=== PATIENT | male | born 1990 | race Caucasian/White ===

== ENCOUNTER 2024-04-15 12:34 | Emergency (ER) | payer MEDICAID, SELFPAY ==
[2024-04-15 12:41] VITALS: BP 166/110; PULSE 95; RESP 18; TEMP 36.9; O2SAT 99; BMI 22.1
[2024-04-15 14:00] VITALS: BP 166/110; PULSE 95
[2024-04-15] MEDS: NIFEdipine 10 MG CAPSULE PO (14:00)
[2024-04-15] MEDS: cefTRIAXone 1,000 MG, LIDOCAINE 1% 20 ML 2.1 ML IM (14:00)
--- NOTE | 2024-04-15 14:01 | EDNOTE_ITS ---
ED Skin Abcess FB-RME/HPI General Chief complaint: Medical Clearance Stated complaint: MEDICAL CLEARANCE Time Seen by Provider: 04/15/24 13:00 Source: patient Arrival date/time: 04/15/24 12:34 this is a 33-year-old male who is brought into the emergency department with complaints of possible cellulitis. According to the patient he does skin popping with methamphetamines and has a couple areas of concern that appear cellulitic no abscess formation. Patient has not taken any medication or seen his PCP for these issues. He is here today in custody of police commanding officer for incarceration. Mode of arrival: ambulatory Related Data Previous Rx's ?Medication ?Instructions ?Recorded albuterol sulfate 90 mcg/actuation 2 puff INH Q6HR PRN Shortness Of 08/06/20 aerosol inhaler (Ventolin HFA) Breath Or Wheeze #6.7 grams amoxicillin 875 mg-potassium 1 tab PO BID #9 tabs 08/06/20 clavulanate 125 mg tablet (Augmentin) diltiazem HCl 120 mg tablet 180 mg (1.5 x 120 mg) PO QDAY #0 08/06/20 (Cardizem) tabs diltiazem HCl 180 mg 180 mg PO QDAY #30 caps 08/06/20 capsule,extended release 24 hr losartan 100 mg tablet (Cozaar) 100 mg PO QDAY #100 tabs 08/06/20 tamsulosin 0.4 mg capsule 0.4 mg PO QDAY #30 caps 08/06/20 ondansetron 4 mg disintegrating 4 mg PO Q8H PRN nausea and 11/19/23 tablet vomiting #10 tabs ondansetron 4 mg disintegrating 4 mg PO Q8H PRN nausea and 11/19/23 tablet vomiting #10 tabs sulfamethoxazole 800 1 tab PO BID 7 days #14 tabs 04/15/24 mg-trimethoprim 160 mg tablet (Bactrim DS) Allergies Allergy/AdvReac Type Severity Reaction Status Date / Time No Known Allergies Allergy Verified 04/15/24 12:48 Review of Systems Review of Systems Systems Reviewed: All systems reviewed, normal except as documented Narrative Review of Systems: Gen: No fever, no chills, no weight loss EYES: No discharge, no visual changes, no pain HEENT: No ear pain, no congestion, no sore throat PULM: No shortness of breath, no cough, no congestion CV: No chest pain, no dyspnea on exertion, no palpitations GI: No nausea, no vomiting, no diarrhea, no pain, no constipation : No frequency, no urgency, no dysuria Musc/skel: No joint pain, no back pain Skin: Multiple small areas of cellulitis pattern throughout arms Psyc: No hallucinations, no depression Heme/Lymph: No easy bleeding or bruising tendencies Neuro: No weakness, no headache ED Exam Narrative Physical exam: general: Sittiing in Exam table in no acute distress, answering questions appropriately HENT: normocephalic, atraumatic, EOMI, PERRLA, moist mucous membranes Chest: chest wall is nontender Cardiac: regular rate and rhythm, normal S1 and S2, no murmurs, rubs, or gallops, capillary refill ?2 seconds Pulmonary: clear to auscultation bilaterally, no wheezing, crackles, or rhonchi Abdominal: active bowel sounds, soft, nontender, nondistended Neuro: A&OX3, CN II-XII intact, sensation grossly intact bilaterally in UE and LE. Skin: Multiple area around cellulitic pattern bilateral forearms no streaking, no abscess formation. Ext: no lower extremity edema Course Quality Measures none Orders Category Date Time Status NIFEdipine [Procardia] Med 04/15/24 13:48 Discontinued 10 mg PO X1 ONE cefTRIAXone [Rocephin] 1,000 mg Med 04/15/24 13:49 Discontinued Lidocaine 1% 20 ml [Xylocaine 1% 20 ML] 2.1 ml IM X1 Vital Signs Vital signs: Vital Signs Temperature 98.4 F 04/15/24 12:41 Pulse Rate 95 04/15/24 12:41 Respiratory Rate 18 04/15/24 12:41 Blood Pressure 166/110 H 04/15/24 12:41 Pulse Oximetry (%) 99 04/15/24 12:41 Oxygen Delivery Method Room Air 04/15/24 12:41 Skin / Abscess / Foreign Body MDM Narrative MDM Narrative:: 33-year-old male here for evaluation medical clearance evaluated for cellulitic patterns at injection site of drugs. No abscess formation no I&D required. Patient was given IM Rocephin here and prescription of Bactrim to take outpatient. Strictly advised patient to stop injecting drugs. patient was cleared to go to the custodial for incarceration. Patient's blood pressure is slightly elevated he normally takes his blood pressure medication which is losartan 100 and also on Cardizem however patient states he has not taken his medication for couple days. 1 dose of blood pressure medication given here. strictly advised patient to stop using drugs follow-up with his PCP return to the emergency department is any worsening sympt oms change in condition Patient data External records reviewed:: [facility] previous records Clinical information provided by:: patient Social determinants that could affect healthcare access:: substance use Patient has the following chronic illnesses:: drug abuse, hypertension How is presenting disease/condition affected by chronic disease/condition?: exacerbated by Evaluation data The following diagnostics were reviewed and interpreted by me:: other (specify) Lab and/or radiology exams considered but not ordered:: none required Interpretation Summary: not applicable Medications / Prescriptions Medications or Prescriptions considered but not ordered:: hypertensive Medication administrations:: Medication Administration History Discontinued Medications Ceftriaxone Sodium 1,000 mg/ (Lidocaine HCl 2.1 ml) 0 mg IM X1 ONE Stop: 04/15/24 13:50 Last Admin: 04/15/24 14:00 Dose: 2.1 mg Documented By: OA Nifedipine (Nifedipine 10 Mg Capsule) 10 mg PO X1 ONE Stop: 04/15/24 13:49 Last Admin: 04/15/24 14:00 Dose: 10 mg Documented By: OA all medications administered and effective Consultations Consultation(s) initiated? (list below): No Diagnosis Skin/Abscess Differential Diagnosis: abscess of skin or subcutaneous tissue, urticaria, cellulitis, insect bites and contact dermatitis Most likely diagnosis given after review of the tests above:: cellulitis drug abuse Admission Indicated Admission indicated?: not indicated Admission Request Was there a request for admission?: No Disposition Plan Disposition Plan: Discharge Discharge Attestation Discharge Attestation: The patient and all family members were given an opportunity to ask questions and understood the discharge instructions. Discharge instructions specifically effects, indications for sooner follow up or return to the emergency department, and the expected course of current diagnosis. Patient condition: Stable Discharge Plan Plan Patient Disposition: HOME (Self Care) Patient condition on transfer: Stable Prescriptions/Referrals Prescriptions/Med Rec: New sulfamethoxazole-trimethoprim [Bactrim DS] 800-160 mg tablet 1 tab PO BID 7 Days Qty: 14 0RF No Action albuterol sulfate [Ventolin HFA] 90 mcg/actuation Hfa Aerosol Inhaler 2 puff INH Q6HR PRN (Reason: Shortness Of Breath Or Wheeze) Qty: 6.7 0RF diltiazem HCl 180 mg Capsule,Extended Release 24hr 180 mg PO QDAY Qty: 30 0RF tamsulosin 0.4 mg Capsule 0.4 mg PO QDAY Qty: 30 0RF losartan [Cozaar] 100 mg tablet 100 mg PO QDAY Qty: 100 0RF amoxicillin-pot clavulanate [Augmentin] 875-125 mg tablet 1 tab PO BID Qty: 9 0RF diltiazem HCl [Cardizem] 120 mg Tablet 180 mg PO QDAY Qty: 0 0RF ondansetron 4 mg tablet,disintegrating 4 mg PO Q8H PRN (Reason: nausea and vomiting) Qty: 10 0RF ondansetron 4 mg tablet,disintegrating 4 mg PO Q8H PRN (Reason: nausea and vomiting) Qty: 10 0RF Referrals: No Primary/Family,Physician [Primary Care Provider] - In 1 week Problem List Clinical Impression: Cellulitis, Drug abuse and dependence Patient/Caregiver Discharge Instructions Discharge Activity: activity as tolerated Education Materials: ED Cellulitis, ED Drug Abuse Additional Instructions: Start Bactrim as indicated and prescribed IM antibiotic given here in ED while he starts his antibiotics And compresses 15 to 20 minutes at a time 3 times a day. Area clean and dry can apply mupirocin twice daily for 7 days. Stop injecting drugs Return to the ER if any worsening symptom Print Language: Icelandic Stand Alone Forms: Jil Award Info., Patient Portal Info Letter PA/NICOLE Supervising Physician RAYA/NICOLE Supervising Physician: Dr. shearer
== END 2024-04-15 14:14 | disposition home or self-care (01) ==
PROVIDERS: Emergency Provider Emergency Medicine
DX: L03.114 Cellulitis of left upper limb (principal); L03.113 Cellulitis of right upper limb; F19.20 Other psychoactive substance dependence, uncomplicated
CPT/HCPCS: 96372; 99283; J0696; J3490; A9270

== ENCOUNTER 2024-05-17 11:40 | Emergency (ER) | payer MEDICAID, SELFPAY ==
--- NOTE | 2024-05-17 11:45 | EDNOTE_ITS ---
ED General RME/HPI General Chief complaint: Medical Clearance Stated complaint: CUSTODIAL CHECK Time Seen by Provider: 05/17/24 11:44 Arrival date/time: 05/17/24 11:40 CC: Medical clearance HPI patient presents the ER handcuffed by EMS, with well- known history of methamphetamine use. The patient is talking rapidly and incoherently. At a high rate of speed. Initial heart rate is at 140s. Patient is awake mildly agitated but not aggressive. Related Data Previous Rx's ?Medication ?Instructions ?Recorded albuterol sulfate 90 mcg/actuation 2 puff INH Q6HR PRN Shortness Of 08/06/20 aerosol inhaler (Ventolin HFA) Breath Or Wheeze #6.7 grams amoxicillin 875 mg-potassium 1 tab PO BID #9 tabs 08/06/20 clavulanate 125 mg tablet (Augmentin) diltiazem HCl 120 mg tablet 180 mg (1.5 x 120 mg) PO QDAY #0 08/06/20 (Cardizem) tabs diltiazem HCl 180 mg 180 mg PO QDAY #30 caps 08/06/20 capsule,extended release 24 hr losartan 100 mg tablet (Cozaar) 100 mg PO QDAY #100 tabs 08/06/20 tamsulosin 0.4 mg capsule 0.4 mg PO QDAY #30 caps 08/06/20 ondansetron 4 mg disintegrating 4 mg PO Q8H PRN nausea and 11/19/23 tablet vomiting #10 tabs ondansetron 4 mg disintegrating 4 mg PO Q8H PRN nausea and 11/19/23 tablet vomiting #10 tabs Allergies Allergy/AdvReac Type Severity Reaction Status Date / Time No Known Allergies Allergy Verified 04/15/24 12:48 Review of Systems Review of Systems Narrative Review of Systems: GEN: No fever, no chills, no weight loss EYES: No discharge, no visual changes, no pain HEENT: No ear pain, no congestion, no sore throat PULM: No shortness of breath, no cough, no congestion CV: No chest pain, no dyspnea on exertion, no palpitations GI: No nausea, no vomiting, no diarrhea, no pain, no constipation : No frequency, no urgency, no dysuria MUSC/SKEL: No joint pain, no back pain SKIN: No rash PSYCH: No hallucinations, no depression HEME/LYMPH: No easy bleeding or bruising tendencies NEURO: No weakness, no headache Past Medical History Past Medical History CARDIAC: Positive Cardiac Disorders (HTN) and Hypertension; Negative Congestive Heart Failure RESPIRATORY: Negative Chronic Obstructive Pulmonary Disease (COPD) or Asthma GENITOURINARY: Negative Renal Disease ENDOCRINE: Positive Hypothyroidism; Negative Diabetes Mellitus Type 1 or Diabetes Mellitus Type 2 OTHER HISTORY: Positive Cancer Social History SMOKING STATUS: Former smoker SUBSTANCE USE: does not use ED Exam Narrative Physical exam: [General: Agitated but not in any acute distress Head normocephalic HEENT: Eyes pupils are PERRLA EOMs are intact. Mouth pink dry membranes uvula is midline. All other subsystems of HEENT are within acceptable limits Neck is supple nontender, no JVD no edema Chest equal chest rise nontender to palpation Respiratory: Clear to auscultation no wheezes crackles or rubs CV: Rate rhythm is regular no murmurs rubs or clicks Abdomen is soft nontender no masses positive bowel sounds all 4 quadrants Back: No CVA tenderness no spinous process tenderness from cervical spine thoracic and lumbar spine Skin: Intact no petechiae rash induration ulceration or crepitus Extremities: Moving all extremity against resistance cap refill less than 2 seconds neurosensory intact Neuro: Awake alert oriented x1, self, Glascow coma 15 no focal deficits] speaking rapidly going off on tangents not related to the questions that were being asked. Course Quality Measures none Orders Category Date Time Status Diazepam Inj [Valium Inj] Med 05/17/24 11:45 Discontinued 10 mg IM X1 ONE Vital Signs Vital signs: Vital Signs Temperature 98.4 F 05/17/24 11:50 Pulse Rate 147 H 05/17/24 11:50 Respiratory Rate 22 H 05/17/24 11:50 Pulse Oximetry (%) 97 05/17/24 11:50 Oxygen Delivery Method Room Air 05/17/24 11:50 [facility] Patient data External records reviewed:: [facility] previous records Clinical information provided by:: patient and law enforcement Social determinants that could affect healthcare access:: none Patient has the following chronic illnesses:: Methamphetamine abuse How is presenting disease/condition affected by chronic disease/condition?: exacerbated by Evaluation data The following diagnostics were reviewed and interpreted by me:: other (specify) (None) Lab and/or radiology exams considered but not ordered:: None Interpretation Summary: Methamphetamine abuse Medications Medications considered but not ordered:: None Medication administrations:: Medication Administration History Discontinued Medications Diazepam (Diazepam Inj 5 Mg/Ml Vial 2 Ml) 10 mg IM X1 ONE Stop: 05/17/24 11:46 Last Admin: 05/17/24 12:01 Dose: 10 mg Documented By: SCARLET None Consultations Consultation(s) initiated? (list below): No Diagnosis Differential Diagnosis ED Complaint MDM: Medical clearance methamphetamine abuse Most likely diagnosis given after review of the tests above:: Medical clearance Admission Indicated Admission indicated?: not indicated Explain why admission is indicated or not indicated:: Stable for discharge to intermediate Admission Request Was there a request for admission?: No Disposition Plan Disposition Plan: Discharge Discharge Attestation Discharge Attestation: The patient and all family members were given an opportunity to ask questions and understood the discharge instructions. Discharge instructions specifically effects, indications for sooner follow up or return to the emergency department, and the expected course of current diagnosis. Patient condition: Stable Medical Decision Making Differential Diagnosis Differential Diagnosis: Medical clearance methamphetamine abuse Discharge Plan Plan Patient Disposition: Shelter/Court/Law Prescriptions/Referrals Prescriptions/Med Rec: No Action albuterol sulfate [Ventolin HFA] 90 mcg/actuation Hfa Aerosol Inhaler 2 puff INH Q6HR PRN (Reason: Shortness Of Breath Or Wheeze) Qty: 6.7 0RF diltiazem HCl 180 mg Capsule,Extended Release 24hr 180 mg PO QDAY Qty: 30 0RF tamsulosin 0.4 mg Capsule 0.4 mg PO QDAY Qty: 30 0RF losartan [Cozaar] 100 mg tablet 100 mg PO QDAY Qty: 100 0RF amoxicillin-pot clavulanate [Augmentin] 875-125 mg tablet 1 tab PO BID Qty: 9 0RF diltiazem HCl [Cardizem] 120 mg Tablet 180 mg PO QDAY Qty: 0 0RF ondansetron 4 mg tablet,disintegrating 4 mg PO Q8H PRN (Reason: nausea and vomiting) Qty: 10 0RF ondansetron 4 mg tablet,disintegrating 4 mg PO Q8H PRN (Reason: nausea and vomiting) Qty: 10 0RF Referrals: Juan Jose Cheung DO [Primary Care Provider] - In 1 week Problem List Clinical Impression: Medical clearance for incarceration Patient/Caregiver Discharge Instructions Print Language: Peruvian Stand Alone Forms: Jil Award Info. PA/FORK OPERATOR Supervising Physician PA/FORK OPERATOR Supervising Physician: Noe Lees ENP
[2024-05-17 11:50] VITALS: PULSE 147; RESP 22; TEMP 36.9; O2SAT 97
[2024-05-17] MEDS: DIAZEPAM INJ 5 MG/ML VIAL 2 ML 10 MG IM (12:01)
[2024-05-17 12:05] VITALS: BMI 28.3
[2024-05-17 12:58] VITALS: BP 122/69; PULSE 120; RESP 19; O2SAT 97
== END 2024-05-17 13:00 ==
PROVIDERS: Emergency Provider Emergency Medicine; PCP Family Medicine
DX: Z02.89 Encounter for other administrative examinations (principal); F15.10 Other stimulant abuse, uncomplicated
CPT/HCPCS: 96372; 99283; J3360

== ENCOUNTER 2024-05-17 18:02 | Emergency (ER) | payer MEDICAID, SELFPAY | END 2024-05-17 18:10 | disposition left against medical advice (07) | LOC: SERX 18:11 | PROVIDERS: Emergency Provider Emergency Medicine | DX: Z53.21 Procedure and treatment not carried out due to patient leaving prior to being seen by health care provider (principal) ==

== ENCOUNTER 2024-05-20 03:22 | Emergency (ER) | payer MEDICAID, SELFPAY ==
[2024-05-20] VITALS (7 sets, daily range): BP systolic 147–173; BP diastolic 74–117; PULSE 95–126; RESP 16–28; TEMP 37.4–37.6; O2SAT 96–98; BMI 22.1
--- NOTE | 2024-05-20 03:30 | EKG_ITS ---
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
--- NOTE | 2024-05-20 03:40 | PD.EDRME ---
Rapid Medical Screening Exam RME Arrival date/time: 05/20/24 03:22 33 yo male present to ED for c/o headache, chest pain, recent GLF, refused treatment prior. I have greeted and performed a focused initial assessment of this patient. A comprehensive ED assessment and evaluation of the patient, analysis of all test results, and completion of the medical decision making process will be conducted by additional ED providers. Chief Complaint: Arrhythmia/Palpitations Time Seen by Provider: 05/20/24 03:26 Vital signs: Vital Signs Temperature 99.3 F 05/20/24 03:30 Pulse Rate 110 H 05/20/24 03:30 Respiratory Rate 19 05/20/24 03:30 Blood Pressure 163/100 H 05/20/24 03:30 Pulse Oximetry (%) 98 05/20/24 03:30
--- NOTE | 2024-05-20 03:42 | XR_ITS ---
Examination: CT maxillofacial, without intravenous contrast. 2-D sagittal reconstructions. 3-D reconstructions. Date and time of exam:May 20, 2024 0454 hrs. Indications: Ground-level fall today with injury to the face, contusion in the right forehead area with facial pain CTDI: vol (mGy):18.1 DLP: (mGycm):329 Technique: Multiple axial images of maxillofacial region, 3.0 mm slice thickness. 2-D sagittal and coronal reconstructions. 3-D reconstructions. Low dose protocols were performed. One or more of the following dose reduction techniques were used; automated exposure control, adjustment of the mA and/or KV according to patient size, use of iterative reconstruction technique. Findings: Soft tissue forehead scalp swelling, soft tissue swelling anterior to the right optic globe The optic globes appear intact Frontal bone frontal sinuses intact Orbital rims intact No nasal bone fracture No depression zygomatic arches Pterygoid plates maxilla and the mandible intact Impression: No acute facial fracture
--- NOTE | 2024-05-20 03:42 | XR_ITS ---
Examination: PA lateral chest 2 views TECHNIQUE: Upright PA lateral chest 2 views Exam date and time: May 20, 2024 0357 hours Comparison July 27, 2020 INDICATIONS: Ground-level fall today with injury to the chest, chest pain FINDINGS: Normal heart size No pneumothorax or pulmonary contusion Clavicles ribs appear intact IMPRESSION: No pneumothorax, pneumonia, pulmonary contusion or hemothorax
--- NOTE | 2024-05-20 03:42 | XR_ITS ---
Examination: CT cervical spine without contrast 2-D sagittal reconstructions 2-D coronal reconstructions 3-D reconstructions. Exam date and time:May 20, 2024 0454 hrs. Indications: Ground-level fall today with injury to the neck, neck pain CTDI:vol (mGy) 13.3 DLP: (mGycm) 305 Technique: Multiple 2 mm axial sections of the cervical spine have been obtained. The coronal and sagittal reconstructions have been obtained. 3-D reconstructions have been obtained. Low dose protocols were performed. One or more of the following dose reduction techniques were used; automated exposure control, adjustment of the mA and/or KV according to patient size, use of iterative reconstruction technique. Findings: Axial sections demonstrate intact base of the skull. C1 exhibit satisfactory relationship to the odontoid. No acute cervical vertebral body fracture seen. Alignment posterior spinous processes satisfactory. Impression: No acute cervical fracture.
--- NOTE | 2024-05-20 03:42 | XR_ITS ---
Examination: CT brain head without contrast. 2-D sagittal coronal reconstructions Date and time of exam:May 20, 2024 0454 hrs. Indications: Ground-level fall today with injury to the head, head pain contusion in the right forehead area CTDI: vol (mGy):51.8 DLP: (mGycm):1054 Technique: Multiple CT axial sections of the brain have been obtained, 5 mm slice thickness. Contrast has not been administered. 2-D sagittal, coronal reconstructions have been obtained Low dose protocols were performed. One or more of the following dose reduction techniques were used; automated exposure control, adjustment of the mA and/or KV according to patient size, use of iterative reconstruction technique. Findings: No significant ventricular enlargement. Right frontal scalp 22 x 8 mm hematoma Intra-axial or extra-axial hemorrhage density is not seen. No mass effect or midline shift Basal cisterns are not remarkable. Fourth ventricle is midline. Cranial vault intact. Impression: Negative for acute hemorrhage, mass effect or midline shift
[2024-05-20 05:54] LABS: Basophils % (Auto) 0 % (0-2.5); Eosinophils % (Auto) 1 % (0-10); Hematocrit 37.2 % (41.0-53.0); Hemoglobin 12.6 g/dL (13.5-16.0); Immature Granulocytes % (Auto) 1 % (0-0); Immature Granulocytes Auto 0.05 Thou/mm3 (0.00-0.00); Lymphocytes # (Auto) 0.9 Thou/mm3 (1.0-4.8); Lymphocytes % (Auto) 16 % (10-50); Mean Corpuscular HGB Conc 33.9 g/dl (31.0-37.0); Mean Corpuscular Hemoglobin 28.6 pg (25.0-35.0); Mean Corpuscular Volume 85 fL (80-100); Monocytes # (Auto) 0.7 Thou/mm3 (0.0-0.8); Monocytes % (Auto) 13 % (0-12); Neutrophils # (Auto) 3.7 Thou/mm3 (1.8-7.7); Neutrophils % (Auto) 68 % (37-80); Nucleated Red Blood Cell % 0 /100 WBC (0); Platelet Count 242 Thou/mm3 (140-440); RDW Standard Deviation 41.4 fL (35.1-43.9); White Blood Count 5.4 Thou/mm3 (3.8-10.6)
[2024-05-20 06:01] LABS: Prothrombin Time 10.9 Seconds (9.0-12.2)
--- NOTE | 2024-05-20 06:01 | PRELIM_ITS ---
CT scan of the head without intravenous contrast (axial sections with sagittal and coronal reformats) . May 20, 2024 at 0454 hoursClinical History: Head injury/headached, GLFComparison: No prior stud y is available for comparison. Findings:Right frontal scalp hematoma. There is no evidence of intracr anial hemorrhage, mass effect or midline shift. The ventricles, sulci and basal cisterns are normal. The mastoid air cells and visualized paranasal sinuses are clear. Impression: No evidence of intrac ranial hemorrhage, mass effect or calvarial fracture. Report Electronically Signed By: Colt Toribio 05/20/2024 6:01:05 AM [EST]
--- NOTE | 2024-05-20 06:05 | PRELIM_ITS ---
CT maxillofacial without intravenous contrast (axial sections with sagittal and coronal reformats). J anuary 2024 at 0454 hours Clinical History: Facial contusion, GLF Comparison: No prior study is a vailable for comparison. Findings:There is no acute fracture. The maxillary sinus and orbital villalta a re intact. There are no air-fluid levels. The zygomatic arches are intact. The mandible is intact. Ri ght periorbital/facial contusion.The globes and intraorbital soft tissues are unremarkable.Impression : 1. No acute fracture.2. No intraorbital contusion/hematoma. Report Electronically Signed By: Luis A Toribio 05/20/2024 6:04:47 AM [EST]
--- NOTE | 2024-05-20 06:07 | PRELIM_ITS ---
CT scan of the cervical spine without intravenous contrast (axial sections with sagittal and coronal reformats) May 20, 2024 at 0454 hours Clinical History: GLF, distracting injuries Comparison: No prior study is available for comparison. Findings:There is no acute cervical fracture or traumatic orta bluxation. The paravertebral soft tissues are unremarkable. Impression: No evidence of acute cervical fracture or traumatic subluxation. Report Electronically Signed By: Colt Toribio 05/20/2024 6:06:29 AM [EST]
[2024-05-20 06:10] LABS: Alanine Aminotransferase 25 U/L (10-49); Albumin, Serum 4.2 gm/dL (3.5-5.0); Albumin/Globulin Ratio 1.8 (1.2-2.2); Alkaline Phosphatase 70 U/L (46-116); Anion Gap 7 (7-16); Aspartate Amino Transferase 25 U/L (0-34); BUN/Creatinine Ratio 18 Ratio (12-20); Bilirubin,Total 0.6 mg/dL (0.3-1.2); Blood Urea Nitrogen 14 mg/dL (9-23); Calcium 9.1 mg/dL (8.3-10.6); Calcium (Corrected) 9.1 mg/dL (8.5-10.1); Carbon Dioxide 29.2 mMol/L (20.0-31.0); Chloride 100 mMol/L (98-107); Creatinine (Component) 0.8 mg/dL (0.6-1.3); Estimated Creatinine Clearance 125.2 mL/min (>60); Globulin 2.4 gm/dL (2.3-3.5); Glucose 87 mg/dL (74-106); Lipase 26 U/L (12-53); Osmolality,Calculated 271 (275-295); Potassium 3.9 mMol/L (3.4-5.1); Sodium 136 mMol/L (136-145); Total Protein 6.6 gm/dL (5.7-8.2); Troponin I < 0.002 ng/mL (0.0-0.045); eGFR > 60 See Note
--- NOTE | 2024-05-20 08:04 | EDNOTE_ITS ---
ED General RME/HPI General Chief complaint: Arrhythmia/Palpitations Stated complaint: PALPITATIONS Time Seen by Provider: 05/20/24 03:26 Arrival date/time: 05/20/24 03:22 RME / HPI RME / HPI narrative: LChief complaint: 05/20/24 03:22 headache, chest pain, recent GLF, refused treatment prior. HPI: Patient is a 33 year old male with past medical history of nephrolithiasis, meth use and hallucinations, presented to ED for c/o headache, chest pain secondary to a recent GLF. He was recently seen in the ER, when he refused treatment for his injuries. Patient had a ground-level fall on 05/17, where he dropped down suddenly on his right side while walking. He recalls hitting his head, right side of his face and possibly right side of his chest. He denies losing consciousness, however claims to have been very obtunded/confused. Patient is a frequent methamphetamine user, and did use meth prior to the fall episode. He recalls experiencing sensations under his skin of something crawling, and burning sensation up from his penis to his abdomen. He has never experienced the symptoms in the past, and claims to be able to see under his skin . Has previously tried to quit and was clean for 7 years, however restarted using drugs again about a year ago. He has been incarcerated many times, and was recently in halfway until Thursday, when he was released and had a ground-level fall at his home. In the ED, patient complains of right-sided headache when he has a wound and swelling from hitting his head. a prominent RT eyelid hematoma, vision intact. He also complains of central chest pain worse on breathing and and on movement, which also started since the ground-level fall. Allergies: Denies any allergies to food or medications Social history: Occupational?History:?Unemployed Tobacco?Use:?Denies ETOH?Use:?Denies Drug?Note:?Methamphetamine and marijuana Social?History?Note:?Lives at?home with roommate Family history: Denies any family history of sudden cardiac , stroke or cancers. L Related Data Previous Rx's ?Medication ?Instructions ?Recorded albuterol sulfate 90 mcg/actuation 2 puff INH Q6HR PRN Shortness Of 08/06/20 aerosol inhaler (Ventolin HFA) Breath Or Wheeze #6.7 grams amoxicillin 875 mg-potassium 1 tab PO BID #9 tabs 08/06/20 clavulanate 125 mg tablet (Augmentin) diltiazem HCl 120 mg tablet 180 mg (1.5 x 120 mg) PO QDAY #0 08/06/20 (Cardizem) tabs diltiazem HCl 180 mg 180 mg PO QDAY #30 caps 08/06/20 capsule,extended release 24 hr losartan 100 mg tablet (Cozaar) 100 mg PO QDAY #100 tabs 08/06/20 tamsulosin 0.4 mg capsule 0.4 mg PO QDAY #30 caps 08/06/20 ondansetron 4 mg disintegrating 4 mg PO Q8H PRN nausea and 11/19/23 tablet vomiting #10 tabs ondansetron 4 mg disintegrating 4 mg PO Q8H PRN nausea and 11/19/23 tablet vomiting #10 tabs acetaminophen 500 mg tablet 1,000 mg (2 x 500 mg) PO Q6H PRN 05/20/24 fever or pain #10 tabs oseltamivir 75 mg capsule (Tamiflu) 75 mg PO QDAY 4 days #4 caps 05/20/24 Allergies Allergy/AdvReac Type Severity Reaction Status Date / Time No Known Allergies Allergy Verified 04/15/24 12:48 Review of Systems Review of Systems Narrative Review of Systems: GENERAL: subjective fevers/chills , no diaphoresis. HEENT: Denies headache or visual/hearing changes. Denies nasal discharge. NEURO: Denies unusual weakness or difficulty speaking. CARDIO: central chest pain worse on breathing in , no palpitations. PULM: Denies SOB, coughing, or wheezing. GI: Denies abdominal pain, N/V/C/D. Reports having BMs URO: Denies burning/itching/pain/urinary changes. MSK/EXT/SKIN: sensation on wires crawling under his skin, burning from penis into abdomen PSYCH: Cooperative, pleasant mood & affect. The rest of the review of systems is otherwise negative. ED Exam Narrative Physical exam: Constitutional Alert, oriented x4 and on RA HEENT Vision grossly intact. Patent nares. Trachea midline. RT eyelid hematoma Respiratory Chest normal on inspection and clear to auscultation bilaterally. Cardiovascular S1 and S2 audible, RRR. No murmurs or carotid bruit. No gross JVD. Abdominal Soft and non tender to palpation in all quadrants. BS + Genitourinary No bladder tenderness, no flank pain. Normal genital exam. Musculoskeletal Extremities tone within normal limits. No LE edema. Neurological CN II - XII grossly intact. Extremity motor and sensation grossly intact. Skin ~2cm Forehead swelling, sanguinous dried discharge. Psychiatric Patient has a good affect, is cooperative. Course Quality Measures none Orders Category Date Time Status Bedside COVID-19 Antigen Test NOW Care 05/20/24 08:01 Active Bedside Influenza A&B Antigen Test NOW Care 05/20/24 08:02 Completed EKG (ED ONLY) *Do not use* NOW Care 05/20/24 03:[address] cervical spine wo con Stat Exams 05/20/24 03:[address] facial bones wo con Stat Exams 05/20/24 03:[address] head/brain wo con Stat Exams 05/20/24 03:42 Taken EKG (ED Only) Stat Exams 05/20/24 03:30 Draft XR chest 2V Stat Exams 05/20/24 03:42 Taken CBC Stat Lab 05/20/24 05:10 Completed CMP [Comprehensive Metabolic Panel] Stat Lab 05/20/24 05:10 Completed Drug Screen,Urine Stat Lab 05/20/24 08:24 Completed INR [Prothrombin Time with INR] Stat Lab 05/20/24 05:10 Completed Lipase Stat Lab 05/20/24 05:10 Completed Magnesium Stat Lab 05/20/24 05:10 Completed Troponin I Stat Lab 05/20/24 05:10 Completed Urinalysis Stat Lab 05/20/24 08:24 Completed Acetaminophen Tab [Tylenol Tab] Med 05/20/24 08:09 Discontinued 650 mg PO X1 ONE Oseltamivir [Tamiflu] Med 05/20/24 08:42 Discontinued 75 mg PO X1 ONE Special Diet Request Routine Oth 05/20/24 08:04 Active Vital Signs Vital signs: Vital Signs Temperature 99.3 F 05/20/24 03:30 Pulse Rate 110 H 05/20/24 03:30 Respiratory Rate 19 05/20/24 03:30 Blood Pressure 163/100 H 05/20/24 03:30 Pulse Oximetry (%) 98 05/20/24 03:30 [facility] Patient data External records reviewed:: [facility] previous records Clinical information provided by:: patient Social determinants that could affect healthcare access:: substance use Patient has the following chronic illnesses:: polysubstance use, tactile hallucinations How is presenting disease/condition affected by chronic disease/condition?: e xacerbated by Evaluation data The following diagnostics were reviewed and interpreted by me:: lab results, radiology exam(s) and EKG tracing(s) Lab and/or radiology exams considered but not ordered:: CT Chest Interpretation Summary: costochondritis possibly superimposed influenza since incarcerated Medications Medications considered but not ordered:: Morphine Medication administrations:: Medication Administration History Discontinued Medications Acetaminophen (Acetaminophen 325 Mg Tablet) 650 mg PO X1 ONE Stop: 05/20/24 08:10 Last Admin: 05/20/24 08:18 Dose: 650 mg Documented By: QUYNH Oseltamivir Phosphate (Oseltamivir 75 Mg Capsule) 75 mg PO X1 ONE Stop: 05/20/24 08:43 Last Admin: 05/20/24 09:05 Dose: 75 mg Documented By: QUYNH symptomatic mx Consultations Consultation(s) initiated? (list below): No Diagnosis Differential Diagnosis ED Complaint MDM: pneumonia Most likely diagnosis given after review of the tests above:: costochondritis Admission Indicated Admission indicated?: not indicated Explain why admission is indicated or not indicated:: can treat outpatient Admission Request Was there a request for admission?: No Disposition Plan Disposition Plan: Discharge Discharge Attestation Discharge Attestation: The patient and all family members were given an opportunity to ask questions and understood the discharge instructions. Discharge instructions specifically effects, indications for sooner follow up or return to the emergency department, and the expected course of current diagnosis. Patient condition: Stable Medical Decision Making MDM Narrative MDM Narrative: Patient is a 33 year old male with past medical history of nephrolithiasis, meth use and hallucinations, who presented after a GLMF. He sustained a RT forehead superficial wound which is now healing, head CT negative. He also had RT facial and jaw tenderness, maxillofacial CT was negative for any acute findings. EKG showed sinus tahcycardia, HR [address] changes ; Troponin <0.002. CXR shows low suspicion for pneumonia, bronchitis likely due to influenza. Patient started coughing ~6 hours ago, within window to start tamiflu. Discharge Plan: - Follow up with PCP within 1 week - Take Tamiflu 75mg daily x 4 more days - Counseled on drug use cessation - Can take Tylenol for pain, avoid strenuous activity - Return to ER if symptoms worsen Differential Diagnosis Differential Diagnosis: pneumonia Lab Data 05/20/24 05:10 05/20/24 05:10 Labs: Lab Results 05/20/24 05/20/24 Range/Units 05:10 08:24 WBC 5.4 (3.8-10.6) Thou/mm3 RBC 4.40 L (4.50-5.90) Miln/mm3 Hgb 12.6 L (13.5-16.0) g/dL Hct 37.2 L (41.0-53.0) % MCV 85 (80-100) fL MCH 28.6 (25.0-35.0) pg MCHC 33.9 (31.0-37.0) g/dl RDW Std Deviation 41.4 (35.1-43.9) fL Plt Count 242 (140-440) Thou/mm3 Neut % (Auto) 68 (37-80) % Lymph % (Auto) 16 (10-50) % Esmeralda % (Auto) 13 H (0-12) % Eos % (Auto) 1 (0-10) % Baso % (Auto) 0 (0-2.5) % Neut # (Auto) 3.7 (1.8-7.7) Thou/mm3 Lymph # (Auto) 0.9 L (1.0-4.8) Thou/mm3 Esmeralda # (Auto) 0.7 (0.0-0.8) Thou/mm3 Eos # (Auto) 0.0 (0.0-0.5) Thou/mm3 Baso # (Auto) 0.0 (0.0-0.2) Thou/mm3 Immature Gran # (Auto) 0.05 H (0.00-0.00) Thou/mm3 Absolute Nucleated RBC 0.00 (0.00-0.00) Thou/mm3 Immature Gran % 1 H (0-0) % Nucleated RBC % 0 (0) /100 WBC PT 10.9 (9.0-12.2) Seconds INR 1.0 (0.9-1.3) Sodium 136 (136-145) mMol/L Potassium 3.9 (3.4-5.1) mMol/L Chloride 100 (98-107) mMol/L Carbon Dioxide 29.2 (20.0-31.0) mMol/L Anion Gap 7 (7-16) BUN 14 (9-23) mg/dL Creatinine 0.8 (0.6-1.3) mg/dL Estim Creat Clear Calc 125.2 (>60) mL/min eGFR > 60 (60 - ) See Note BUN/Creatinine Ratio 18 (12-20) Ratio Glucose 87 (74-106) mg/dL Calculated Osmolality 271 L (275-295) Calcium 9.1 (8.3-10.6) mg/dL Corrected Calcium 9.1 (8.5-10.1) mg/dL Magnesium 2.0 (1.6-2.6) mg/dL Total Bilirubin 0.6 (0.3-1.2) mg/dL AST 25 (0-34) U/L ALT 25 (10-49) U/L Alkaline Phosphatase 70 (46-116) U/L Troponin I < 0.002 (0.0-0.045) ng/mL Total Protein 6.6 (5.7-8.2) gm/dL Albumin 4.2 (3.5-5.0) gm/dL Globulin 2.4 (2.3-3.5) gm/dL Albumin/Globulin Ratio 1.8 (1.2-2.2) Lipase 26 (12-53) U/L Ur Collection Type Clean Catch Urine Color Yellow (Lt Yel-Yel) Urine Clarity Clear (Clear/Hazy) Urine pH 6.0 (5.0-7.0) Ur Specific [place] 1.025 (1.001-1.035) Urine Protein Trace (Neg - Trace) Urine Glucose (UA) Negative (Negative) Urine Ketones Negative (Negative) Urine Blood Negative (Negative) Urine Nitrite Negative (Negative) Urine Bilirubin Negative (Negative) Urine Urobilinogen (Auto) Negative (0.0-1.0) mg/dL Ur Leukocyte Esterase Negative (Negative) Urine RBC 4 H (0-3) /hpf Urine WBC 3 (0-5) /hpf Ur Squamous Epith Cells 0 (0-5) /hpf Urine Bacteria None (None) Urine Opiates Screen Negative (Negative) Urine Fentanyl Screen Negative (Negative) Ur Barbiturates Screen Negative (Negative) U Amphetamin/Meth Scrn Positive A (Negative) U Benzodiazepines Scrn Positive A (Negative) U Cocaine Metab Screen Negative (Negative) U Marijuana (THC) Screen Negative (Negative) Discharge Plan Plan Patient Disposition: HOME (Self Care) Prescriptions/Referrals Prescriptions/Med Rec: New oseltamivir [Tamiflu] 75 mg capsule 75 mg PO QDAY 4 Days Qty: 4 0RF acetaminophen 500 mg tablet 1,000 mg PO Q6H PRN (Reason: fever or pain) Qty: 10 0RF No Action albuterol sulfate [Ventolin HFA] 90 mcg/actuation Hfa Aerosol Inhaler 2 puff INH Q6HR PRN (Reason: Shortness Of Breath Or Wheeze) Qty: 6.7 0RF diltiazem HCl 180 mg Capsule,Extended Release 24hr 180 mg PO QDAY Qty: 30 0RF tamsulosin 0.4 mg Capsule 0.4 mg PO QDAY Qty: 30 0RF losartan [Cozaar] 100 mg tablet 100 mg PO QDAY Qty: 100 0RF amoxicillin-pot clavulanate [Augmentin] 875-125 mg tablet 1 tab PO BID Qty: 9 0RF diltiazem HCl [Cardizem] 120 mg Tablet 180 mg PO QDAY Qty: 0 0RF ondansetron 4 mg tablet,disintegrating 4 mg PO Q8H PRN (Reason: nausea and vomiting) Qty: 10 0RF ondansetron 4 mg tablet,disintegrating 4 mg PO Q8H PRN (Reason: nausea and vomiting) Qty: 10 0RF Referrals: Juan Jose Cheung DO [Primary Care Provider] - In 1 week Problem List Clinical Impression: Acute costochondritis, Ground-level fall Patient/Caregiver Discharge Instructions Other Activity Instructions:: Discharge Plan: - Follow up with PCP within 1 week - Take Tamiflu 75mg daily x 4 more days - Counseled on drug use cessation - Can take Tylenol for pain, avoid strenuous activity - Return to ER if symptoms worsen Print Language: Guinean Stand Alone Forms: Jil Award Info., Patient Portal Info Letter
[2024-05-20] MEDS: ACETAMINOPHEN 325 MG TABLET 650 MG PO (08:18)
[2024-05-20 08:38] LABS: Collection Type, Urine Clean Catch; Squamous Epithelial Cell,Urine 0 /hpf (0-5)
[2024-05-20] MEDS: OSELTAMIVIR 75 MG CAPSULE PO (09:05)
[2024-05-20 09:19] LABS: Amphetamine/Methamp Scrn,U Positive (Negative); Barbiturate Screen,Urine Negative (Negative); Benzodiazepines Screen,Urine Positive (Negative); Benzoylecgonine Screen, Ur Negative (Negative); Fentanyl Screen,Urine Negative (Negative); Opiate Screen,Urine Negative (Negative); THC Screen,Urine Negative (Negative)
[2024-05-20 09:21] LABS: Bilirubin,Urine Negative (Negative); Blood,Urine Negative (Negative); Clarity,Urine Clear (Clear/Hazy); Color,Urine Yellow (Lt Yel-Yel); Glucose, Urine Negative (Negative); Ketones,Urine Negative (Negative); Leukocyte Esterase,Urine Negative (Negative); Nitrite,Urine Negative (Negative); Protein,Urine Trace (Neg - Trace); RBC,Urine 4 /hpf (0-3); Specific Gravity,Urine 1.025 (1.001-1.035); Urobilinogen,Urine Negative mg/dL (0.0-1.0); WBC,Urine 3 /hpf (0-5)
== END 2024-05-20 10:49 | disposition home or self-care (01) ==
PROVIDERS: Physician Assistant; Student in an Organized Health Care Education/Training Program; Emergency Provider Emergency Medicine; PCP Family Medicine
DX: M94.0 Chondrocostal junction syndrome [Tietze] (principal); R51.9 Headache, unspecified; H02.89 Other specified disorders of eyelid
CPT/HCPCS: 36415; 70450; 70486; 71046; 72125; 80053; 80307; 81001; 83690; 83735; 84484; 85025; 85610; 87400; 87811; 93005; 99284; A9270

== ENCOUNTER 2024-06-17 02:33 | Emergency (ER) | payer MEDICAID, SELFPAY ==
[2024-06-17 02:38] VITALS: BP 176/97; PULSE 126; RESP 20; TEMP 36.5; O2SAT 96; BMI 21.4
--- NOTE | 2024-06-17 02:53 | PD.EDRME ---
Rapid Medical Screening Exam [facility] Arrival date/time: 06/17/24 02:33 33M with history of meth use presents to ED thinking there are worms all in his body. He brought in a Ziploc bag with a piece of white string in it saying that was a worm. 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 Chief Complaint: General Adult/Misc Complain Vital signs: Vital Signs Temperature 97.7 F 06/17/24 02:38 Pulse Rate 126 H 06/17/24 02:38 Respiratory Rate 20 06/17/24 02:38 Blood Pressure 176/97 H 06/17/24 02:38 Pulse Oximetry (%) 96 06/17/24 02:38 Oxygen Delivery Method Room Air 06/17/24 02:38
--- NOTE | 2024-06-17 03:12 | EDNOTE_ITS ---
ED General RME/HPI General Chief complaint: General Adult/Misc Complain Stated complaint: THINKS WORMS COMING OUT FROM HIS BODY Time Seen by Provider: 06/17/24 03:05 Arrival date/time: 06/17/24 02:33 RME / HPI RME / HPI narrative: 06/17/24 02:33 33M with history of meth use presents to ED thinking there are worms all in his body. He brought in a Ziploc bag with a piece of white string in it saying that was a worm. 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 Dr. Conway?s Main ED Evaluation: 33yo male with a history of methamphetamine use presents to the ED for a chief complaint of worms being all over my body . Patient states he feels like he has worms under his tongue. He states he's been using meth for over 20 years without having these . When asked further questions, patient is unwilling to answer and is tremulous, angry, constant mumbling even when asking to speak up, and is uncooperative. Related Data Previous Rx's ?Medication ?Instructions ?Recorded albuterol sulfate 90 mcg/actuation 2 puff INH Q6HR PRN Shortness Of 08/06/20 aerosol inhaler (Ventolin HFA) Breath Or Wheeze #6.7 g margie amoxicillin 875 mg-potassium 1 tab PO BID #9 tabs 07/26 06/17 clavulanate 125 mg tablet (Augmentin) diltiazem HCl 120 mg tablet 180 mg (1.5 x 120 mg) PO Q DAY #0 08/06/20 (Cardizem) tabs diltiazem HCl 180 mg 180 mg PO QDAY #30 caps 07/26 06/17 capsule,extended release 24 hr losartan 100 mg tablet (Cozaar) 100 mg PO QDAY #100 ta bs 08/06/20 tamsulosin 0.4 mg capsule 0.4 mg PO QDAY #30 caps 07/26 06/17 ondansetron 4 mg disintegrating 4 mg PO Q8H PRN nausea and 11/19/23 tablet vomiting #10 tabs ondansetron 4 mg disintegrating 4 mg PO Q8H PRN nausea and 11/19/23 tablet vomiting #10 tabs acetaminophen 500 mg tablet 1,000 mg (2 x 500 mg) PO Q 6H PRN 05/20/24 fever or pain #10 tabs Allergies Allergy/AdvReac Type Severity Reaction Status Date / Time No Known Allergies Allergy Verified 06/17/24 02:36 Review of Systems Review of Systems Systems Reviewed: All systems reviewed, normal except as documented Past Medical History Past Medical History CARDIAC: Positive Cardiac Disorders and Hypertension; Negative Congestive Heart Failure RESPIRATORY: Negative Chronic Obstructive Pulmonary Disease (COPD) or Asthma GENITOURINARY: Negative Renal Disease ENDOCRINE: Positive Hypothyroidism; Negative Diabetes Mellitus Type 1 or Diabetes Mellitus Type 2 OTHER HISTORY: Positive Cancer Social History SMOKING STATUS: Never smoker SUBSTANCE USE: does not use ED Exam Narrative Physical exam: GENERAL APPEARANCE: alert and oriented x 4, has pressured speech, tremulous, is mumbling and not maintaining eye contact, no acute distress VITALS: All vitals were reviewed and the pulse ox is 96% on room air, which is normal according to my interpretation. PSYCHIATRIC: agitated mood and affect; belligerent, uncooperative Course Course Course Narrative: I encouraged the patient to stay in order to have laboratory studies done. Patient refused to let staff draw blood and would not participate in a history or physical examination. Quality Measures none Vital Signs Vital signs: Vital Signs Temperature 97.7 F 06/17/24 02:38 Pulse Rate 126 H 06/17/24 02:38 Respiratory Rate 20 06/17/24 02:38 Blood Pressure 176/97 H 06/17/24 02:38 Pulse Oximetry (%) 96 06/17/24 02:38 Oxygen Delivery Method Room Air 06/17/24 02:38 [facility] Patient data External records reviewed:: [facility] previous records (Per chart review, patient was seen here on 05/20/24 for acute costochondritis.) Clinical information provided by:: patient Social determinants that could affect healthcare access:: substance use Patient has the following chronic illnesses:: HTN, hyperthyroidism How is presenting disease/condition affected by chronic disease/condition?: uneffected by Evaluation data The following diagnostics were reviewed and interpreted by me:: other (specify) (none) Lab and/or radiology exams considered but not ordered:: none Interpretation Summary: none Medications Medications considered but not ordered:: none Medication administrations:: none Consultations Consultation(s) initiated? (list below): No Diagnosis Differential Diagnosis ED Complaint MDM: methamphetamine use, cocaine use, polysubstance abuse Most likely diagnosis given after review of the tests above:: see below Admission Indicated Admission indicated?: not indicated Explain why admission is indicated or not indicated:: No criteria for admission. Admission Request Was there a request for admission?: No Disposition Plan Disposition Plan: Discharge Discharge Attestation Discharge Attestation: The patient and all family members were given an opportunity to ask questions and understood the discharge instructions. Discharge instructions specifically effects, indications for sooner follow up or return to the emergency department, and the expected course of current diagnosis. Patient condition: Stable Medical Decision Making MDM Narrative MDM Narrative: Scribe Attestation: 06/17/24 - Kat Gentile am scribing for and in the presence of Dr. Conway. Differential Diagnosis Differential Diagnosis: methamphetamine use, cocaine use, polysubstance abuse Discharge Plan Plan Patient Disposition: HOME (Self Care) Prescriptions/Referrals Prescriptions/Med Rec: No Action albuterol sulfate [Ventolin HFA] 90 mcg/actuation Hfa Aerosol Inhaler 2 puff INH Q6HR PRN (Reason: Shortness Of Breath Or Wheeze) Qty: 6.7 0RF diltiazem HCl 180 mg Capsule,Extended Release 24hr 180 mg PO QDAY Qty: 30 0RF tamsulosin 0.4 mg Capsule 0.4 mg PO QDAY Qty: 30 0RF losartan [Cozaar] 100 mg tablet 100 mg PO QDAY Qty: 100 0RF amoxicillin-pot clavulanate [Augmentin] 875-125 mg tablet 1 tab PO BID Qty: 9 0RF diltiazem HCl [Cardizem] 120 mg Tablet 180 mg PO QDAY Qty: 0 0RF ondansetron 4 mg tablet,disintegrating 4 mg PO Q8H PRN (Reason: nausea and vomiting) Qty: 10 0RF ondansetron 4 mg tablet,disintegrating 4 mg PO Q8H PRN (Reason: nausea and vomiting) Qty: 10 0RF acetaminophen 500 mg tablet 1,000 mg PO Q6H PRN (Reason: fever or pain) Qty: 10 0RF Problem List Clinical Impression: Methamphetamine-induced psychotic disorder Patient/Caregiver Discharge Instructions Print Language: Yoruba Stand Alone Forms: Jil Award Info., Patient Portal Info Letter
--- NOTE | 2024-06-17 03:14 | PC.NURSE ---
PT ALREADY WALKED OUT AFTER TALKING TO PICKARD PA BUT PT CAMEBACK AND SAID HE WANTS TO TALK TO PICKARD PA AGAIN. PT WENT TO [facility]OM [facility] AND PICKARD PA TALKED TO HIM AGAIN BUT REQUESTED TO TALK TO MD. DR. PADRON WENT TO [address] 2 AND TRIED TO TALK TO PT.
== END 2024-06-17 03:17 | disposition home or self-care (01) ==
LOC: SERX 03:14
PROVIDERS: Emergency Provider Emergency Medicine
DX: F15.959 Other stimulant use, unspecified with stimulant-induced psychotic disorder, unspecified (principal)
CPT/HCPCS: 99281

== ENCOUNTER 2024-11-05 22:49 | Emergency (ER) | payer MEDICAID, SELFPAY ==
[2024-11-05 22:54] VITALS: PULSE 94; RESP 20; O2SAT 98; BMI 25.0
[2024-11-05 22:59] VITALS: BP 153/95; PULSE 94; RESP 18; TEMP 37.2; O2SAT 94
--- NOTE | 2024-11-06 00:33 | EDNOTE_ITS ---
ED Skin Abcess FB-RME/HPI General Chief complaint: Skin/Abscess/Foreign Body Stated complaint: RIGHT FOOT PAIN Time Seen by Provider: 11/05/24 23:09 Arrival date/time: 11/05/24 22:49 RME / HPI RME / HPI narrative: 33-year-old male presents to the ED with a complaint of right foot redness, swelling and pain. He states he injured his foot approximately 1 month ago when he [place] something in the river. He was seen by his primary care physician on the seventh or the eighth and was prescribed Keflex 500 mg twice daily. He states he has been taking this medication as prescribed but has not taken his evening dose tonight. He denies any fever or chills, nausea or vomiting, diarrhea or abdominal pain. Related Data Previous Rx's ?Medication ?Instructions ?Recorded albuterol sulfate 90 mcg/actuation 2 puff INH Q6HR PRN Shortness Of 08/06/20 aerosol inhaler (Ventolin HFA) Breath Or Wheeze #6.7 g margie amoxicillin 875 mg-potassium 1 tab PO BID #9 tabs 07/26 06/17 clavulanate 125 mg tablet (Augmentin) diltiazem HCl 120 mg tablet 180 mg (1.5 x 120 mg) PO Q DAY #0 08/06/20 (Cardizem) tabs diltiazem HCl 180 mg 180 mg PO QDAY #30 caps 07/26 06/17 capsule,extended release 24 hr losartan 100 mg tablet (Cozaar) 100 mg PO QDAY #100 ta bs 08/06/20 tamsulosin 0.4 mg capsule 0.4 mg PO QDAY #30 caps 07/26 06/17 ondansetron 4 mg disintegrating 4 mg PO Q8H PRN nausea and 11/19/23 tablet vomiting #10 tabs ondansetron 4 mg disintegrating 4 mg PO Q8H PRN nausea and 11/19/23 tablet vomiting #10 tabs acetaminophen 500 mg tablet 1,000 mg (2 x 500 mg) PO Q 6H PRN 05/20/24 fever or pain #10 tabs clindamycin HCl 300 mg capsule 300 mg PO Q6H 10 days # 40 caps 11/06/24 Allergies Allergy/AdvReac Type Severity Reaction Status Date / Time No Known Allergies Allergy Verified 06/17/24 02:36 Review of Systems Review of Systems Systems Reviewed: All systems reviewed, normal except as documented Past Medical History Past Medical History CARDIAC: Positive Cardiac Disorders and Hypertension; Negative Congestive Heart Failure RESPIRATORY: Negative Chronic Obstructive Pulmonary Disease (COPD) or Asthma GENITOURINARY: Negative Renal Disease ENDOCRINE: Positive Hypothyroidism; Negative Diabetes Mellitus Type 1 or Diabetes Mellitus Type 2 OTHER HISTORY: Positive Cancer Social History SMOKING STATUS: Never smoker SUBSTANCE USE: does not use ED Exam Narrative Physical exam: Alert and oriented 33-year-old male, no acute distress. Rapid pressured speech. Lungs are clear, regular rate and rhythm. Right foot with intact blister noted between the fourth and the fifth toes. Erythema, warmth, tenderness and swelling noted to the dorsal aspect of his right foot. No erythema extending to the plantar surface or the medial surface of his right foot. CMS intact distally. Course Course Course Narrative: Labs reveal a normal white count of 6.8, normal hemoglobin, low hematocrit of 38.2 with mildly elevated platelets of 488. ESR is mildly elevated at 19, lactic is normal at 1.1, CRP is minimally elevated at 1.1. CMP reveals minimally elevated sodium and chloride of 146/108, normal potassium, CO2, gap, BUN and creatinine, glucose, LFTs. Blood cultures obtained and are pending. Patient was given clindamycin 300 mg p.o. prior to discharge. He will be given instructions to follow-up with his primary care physician in 24 to 48 hours. He was also advised to stop taking cephalexin twice daily and changed to the new prescription of clindamycin. He was encouraged to return to the ED for any new or worsening symptoms. Quality Measures none Orders Category Date Time Status Blood Culture (Lab) Stat Lab 11/06/24 00:40 Received CBC Stat Lab 11/06/24 00:46 Completed CMP [Comprehensive Metabolic Panel] Stat Lab 11/06/24 00:46 Completed CRP [C-Reactive Protein] Stat Lab 11/06/24 00:46 Completed ESR [Sed Rate (ESR)] Stat Lab 11/06/24 00:46 Completed Lactic Acid [Lactate (Lactic Acid)] Stat Lab 11/06/24 00:46 Completed Clindamycin [Cleocin] Med 11/06/24 01:30 Discontinued 300 mg PO X1 ONE Vital Signs Vital signs: Vital Signs Temperature 99.0 F 11/05/24 22:59 Pulse Rate 94 11/05/24 22:59 Respiratory Rate 18 11/05/24 22:59 Blood Pressure 153/95 H 11/05/24 22:59 Pulse Oximetry (%) 94 L 11/05/24 22:59 Oxygen Delivery Method Room Air 11/05/24 22:59 Skin / Abscess / Foreign Body Patient data External records reviewed:: [facility] previous records Clinical information provided by:: patient Social determinants that could affect healthcare access:: substance use Patient has the following chronic illnesses:: Hypertension How is presenting disease/condition affected by chronic disease/condition?: uneffected by Evaluation data The following diagnostics were reviewed and interpreted by me:: lab results Lab and/or radiology exams considered but not ordered:: N/A Interpretation Summary: As noted above Medications / Prescriptions Medications or Prescriptions considered but not ordered:: N/A Medication administrations:: Medication Administration History Discontinued Medications Clindamycin HCl (Clindamycin 150 Mg Capsule) 300 mg PO X1 ONE Stop: 11/06/24 01:31 Last Admin: 11/06/24 01:41 Dose: 300 mg Documented By: CVL As noted above Consultations Consultation(s) initiated? (list below): No Diagnosis Skin/Abscess Differential Diagnosis: abscess of skin or subcutaneous tissue and cellulitis Most likely diagnosis given after review of the tests above:: Cellulitis Admission Indicated Admission indicated?: not indicated Explain why admission is indicated or not indicated:: Patient is stable for discharge Admission Request Was there a request for admission?: No Disposition Plan Disposition Plan: Discharge Discharge Attestation Discharge Attestation: The patient and all family members were given an opportunity to ask questions and understood the discharge instructions. Discharge instructions specifically effects, indications for sooner follow up or return to the emergency department, and the expected course of current diagnosis. Patient condition: Stable Discharge Plan Plan Patient Disposition: HOME (Self Care) Discharge Disposition comment: Stable Prescriptions/Referrals Prescriptions/Med Rec: New clindamycin HCl 300 mg capsule 300 mg PO Q6H 10 Days Qty: 40 0RF Rx Instructions: Please stop taking the previously prescribed cephalexin. No Action albuterol sulfate [Ventolin HFA] 90 mcg/actuation Hfa Aerosol Inhaler 2 puff INH Q6HR PRN (Reason: Shortness Of Breath Or Wheeze) Qty: 6.7 0RF diltiazem HCl 180 mg Capsule,Extended Release 24hr 180 mg PO QDAY Qty: 30 0RF tamsulosin 0.4 mg Capsule 0.4 mg PO QDAY Qty: 30 0RF losartan [Cozaar] 100 mg tablet 100 mg PO QDAY Qty: 100 0RF amoxicillin-pot clavulanate [Augmentin] 875-125 mg tablet 1 tab PO BID Qty: 9 0RF diltiazem HCl [Cardizem] 120 mg Tablet 180 mg PO QDAY Qty: 0 0RF ondansetron 4 mg tablet,disintegrating 4 mg PO Q8H PRN (Reason: nausea and vomiting) Qty: 10 0RF ondansetron 4 mg tablet,disintegrating 4 mg PO Q8H PRN (Reason: nausea and vomiting) Qty: 10 0RF acetaminophen 500 mg tablet 1,000 mg PO Q6H PRN (Reason: fever or pain) Qty: 10 0RF Referrals: Agnes Funes PA-C [Primary Care Provider] - In 1 week Problem List Clinical Impression: Cellulitis Patient/Caregiver Discharge Instructions Education Materials: ED Cellulitis Additional Instructions: Take the antibiotics as new antibiotics as prescribed and complete the course even though you may be feeling better Stop taking the cephalexin. Follow-up with your primary care physician in 24 to 48 hours. Return to the ED for any new or worsening symptoms. Print Language: Guinean Stand Alone Forms: Jil Award Info., Patient Portal Info Letter RAYA/NICOLE Supervising Physician RAYA/NICOLE Supervising Physician: Dr. Leal
[2024-11-06 01:12] LABS: Lactate (Lactic Acid) 1.1 mMol/L (0.4-2.0)
[2024-11-06 01:17] LABS: Basophils # (Auto) 0.1 Thou/mm3 (0.0-0.2); Basophils % (Auto) 1 % (0-2.5); Eosinophils # (Auto) 0.2 Thou/mm3 (0.0-0.5); Eosinophils % (Auto) 3 % (0-10); Hematocrit 38.2 % (41.0-53.0); Hemoglobin 13.6 g/dL (13.5-16.0); Immature Granulocytes Auto 0.04 Thou/mm3 (0.00-0.00); Lymphocytes # (Auto) 2.4 Thou/mm3 (1.0-4.8); Lymphocytes % (Auto) 35 % (10-50); Mean Corpuscular HGB Conc 35.6 g/dl (31.0-37.0); Mean Corpuscular Hemoglobin 30.1 pg (25.0-35.0); Mean Corpuscular Volume 85 fL (80-100); Monocytes # (Auto) 0.7 Thou/mm3 (0.0-0.8); Monocytes % (Auto) 10 % (0-12); Neutrophils # (Auto) 3.5 Thou/mm3 (1.8-7.7); Neutrophils % (Auto) 51 % (37-80); Nucleated Red Blood Cell # 0.00 Thou/mm3 (0.00-0.00); Nucleated Red Blood Cell % 0 /100 WBC (0); Platelet Count 488 Thou/mm3 (140-440); RDW Standard Deviation 39.3 fL (35.1-43.9); Red Blood Count 4.52 Miln/mm3 (4.50-5.90); White Blood Count 6.8 Thou/mm3 (3.8-10.6)
[2024-11-06 01:26] LABS: Sed Rate (ESR) 19 mm/hr (0-15)
[2024-11-06 01:41] LABS: Alanine Aminotransferase 12 U/L (10-49); Albumin, Serum 4.2 gm/dL (3.5-5.0); Albumin/Globulin Ratio 1.6 (1.2-2.2); Alkaline Phosphatase 85 U/L (46-116); Anion Gap 10 (7-16); Aspartate Amino Transferase 14 U/L (0-34); BUN/Creatinine Ratio 12 Ratio (12-20); Bilirubin,Total 0.5 mg/dL (0.3-1.2); Blood Urea Nitrogen 15 mg/dL (9-23); C-Reactive Protein 1.1 mg/dL (0.0-0.9); Calcium 9.5 mg/dL (8.3-10.6); Calcium (Corrected) 9.5 mg/dL (8.5-10.1); Carbon Dioxide 28.5 mMol/L (20.0-31.0); Chloride 108 mMol/L (98-107); Creatinine (Component) 1.3 mg/dL (0.6-1.3); Estimated Creatinine Clearance 77.5 mL/min (>60); Globulin 2.6 gm/dL (2.3-3.5); Glucose 93 mg/dL (74-106); Osmolality,Calculated 291 (275-295); Potassium 4.1 mMol/L (3.4-5.1); Sodium 146 mMol/L (136-145); Total Protein 6.8 gm/dL (5.7-8.2); eGFR > 60 See Note
[2024-11-06] MEDS: CLINDAMYCIN 150 MG CAPSULE 300 MG PO (01:41)
[2024-11-06 02:04] VITALS: RESP 18
== END 2024-11-06 02:05 | disposition home or self-care (01) ==
PROVIDERS: Physician Assistant; Emergency Provider Emergency Medicine; PCP Physician Assistant Medical
DX: S90.821A Blister (nonthermal), right foot, initial encounter (principal); L03.115 Cellulitis of right lower limb; W22.8XXA Striking against or struck by other objects, initial encounter
CPT/HCPCS: 36415; 80053; 83605; 85025; 85652; 86140; 87040; 99283; A9270